=== PATIENT | male | born 1980 | race Caucasian/White ===

== ENCOUNTER 2016-08-07 11:56 | Emergency (ER) | payer OTHER ==
[~2016-08-07] VITALS: Ht 193 cm; Wt 104.3 kg
[~2016-08-07 11:56] MED LIST: ADVIL200 MG PO; ALPRAZOLAM2 M2 PO; ALPRAZOLAM2 MG PO; AMBIEN5 M1 PO; BACTROBAN OINT.30 GM TOP; DEPAKOTE500 M1 PO; KLONOPIN 1MG TAB1 MG PO; KLONOPIN2 MG PO; LITHIUM CARBON300 M3 PO; LITHIUM CARBON300 M4 PO; METHADONE10 MG/5 M2 PO; MOBIC15 MG PO; MOTRIN 400MG (400 MG PO; PANTOPRAZOLE SO40 MG PO; PROTONIX40 M3 PO; TYLENOL XSTR500 MG PO; XANAX2 M1 PO
[2016-08-07 12:06] VITALS: BP 157/114
[2016-08-07] MEDS ORDERED: DEPAKOTE500 M1 PO (12:41)
[2016-08-07] MEDS ORDERED: XANAX1 M1 PO (12:41)
[2016-08-07] MEDS ORDERED: PROTONIX40 M3 PO (12:41)
--- NOTE | 2016-08-07 12:44 | ED GENERAL ADULT ---
History of Present Illness General Chief Complaint: General Adult Stated Complaint: MED REFILL Source: patient, old records Exam Limitations: no limitations Vital Signs & Intake/Output Vital Signs & Intake/Output Vital Signs Date Time Temp Pulse Resp B/P B/P Pulse O2 O2 Flow FiO2 Mean Ox Delivery Rate 08/07 1206 98.3 98 20 157/114 97 Room Air Allergies Coded Allergies: Penicillins (Mild, RASH 04/19/15) codeine (Mild, GI UPSET 04/19/15) Reconcile Medications Alprazolam 2 MG TABLET 1 TAB PO TID ANXIETY (Reported) Alprazolam (Xanax) 1 MG TABLET 1 TAB PO TID anxiety Divalproex Sodium (Depakote) 500 MG TABLET.DR 2 TAB PO BID SEIZURES (Reported ) Divalproex Sodium (Depakote) 500 MG TABLET.DR 2 TAB PO BID BIPOLAR/SEIZURES Divalproex Sodium (Depakote) 500 MG TABLET.DR 1 TAB PO BID mood stabilizer Pantoprazole Sodium (Protonix) 40 MG TABLET.DR 1 TAB PO DAILY ACID REFLUX ( Reported) Pantoprazole Sodium (Protonix) 40 MG TABLET.DR 1 TAB PO DAILY gastritis Zolpidem Tartrate (Ambien) 5 MG TABLET 1 TAB PO QPMP SLEEP HELP (Reported) Triage Note: PT REQUESTING REFILL ON DEPAKOTE, XANAX, PROTONIX. STATES HE WAS IN HALFWAY X 6 MONTHS AND JUST GOT OUT. HIS MD WON'T REFILL HIS RX BECAUSE HE OWES HIM MONEY Triage Nurses Notes Reviewed? yes Onset: Just prior to arrival Duration: hour(s):, constant, continues in ED Timing: recent history Severity: mild No Modifying Factors: none HPI: Patient presents for refill of prescriptions Depakote Xanax Protonix. He denies fever chills nausea vomiting diarrhea abdominal pain chest pain shortness breath headache dysuria rash bleeding. Past History Travel History Traveled to [place] past 21 day No Medical History Any Pertinent Medical History? 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 No Review of Systems Review of Systems Constitutional: Reports: no symptoms. EENTM: Reports: no symptoms. Respiratory: Reports: no symptoms. Cardiovascular: Reports: no symptoms. GI: Reports: no symptoms. Genitourinary: Reports: no symptoms. Musculoskeletal: Reports: no symptoms. Skin: Reports: no symptoms. Neurological/Psychological: Reports: no symptoms. Hematologic/Endocrine: Reports: no symptoms. Immunologic/Allergic: Reports: no symptoms. All Other Systems: Reviewed and Negative Physical Exam Physical Exam General Appearance: well developed/nourished, no apparent distress, alert, awake , comfortable Head: atraumatic, normal appearance Eyes: Bilateral: normal appearance, PERRL, EOMI. Ears, Nose, Throat: normal pharynx, normal ENT inspection Neck: normal inspection, supple, full range of motion, no midline tenderness Respiratory: normal breath sounds, chest non-tender, no respiratory distress, quiet respiration, lungs clear Cardiovascular: regular rate/rhythm, normal peripheral pulses, norml femoral pulses equa Peripheral Pulses: 4+ carotid (R), 4+ carotid (L) Gastrointestinal: normal bowel sounds, soft, non-tender, no organomegaly Back: normal inspection, normal range of motion, no vertebral tenderness Extremities: normal inspection, normal capillary refill, normal range of motion, no edema Neurologic/Psych: no motor/sensory deficits, awake, alert, oriented x 3, normal gait, normal mood/affect Reflexes: 2+: bicep (R), bicep (L). Skin: intact, normal color, warm/dry Lymphatic: no anterior cervical kelly Core Measures ACS in differential dx? No CVA/TIA Diagnosis: No Severe Sepsis Present: No Septic Shock Present: No Progress Differential Diagnoses I considered the following diagnoses in my evaluation of the patient: Medication refill Plan of Care: med refill Initial ED EKG: none Departure Departure Time of Disposition: 1238 Disposition: HOME OR SELF CARE Condition: Stable Clinical Impression Primary Impression: Medication refill Secondary Impressions: Bipolar disorder Qualifiers: Current episode severity: unspecified Referrals: PATIENT HAS NO PRIMARY CARE DR (PCP/Family) Departure Forms: Customer Survey General Discharge Information Prescriptions: Current Visit Scripts Alprazolam (Xanax) 1 TAB PO TID #21 TAB Pantoprazole Sodium (Protonix) 1 TAB PO DAILY #7 TAB Divalproex Sodium (Depakote) 1 TAB PO BID #14 TAB Critical Care Note Critical Care Note Critical Care Time: non-applicable
== END 2016-08-07 12:52 ==
LOC: ERH 11:56
DX: Z76.0 Encounter for issue of repeat prescription (principal); F31.9 Bipolar disorder, unspecified
CPT/HCPCS: 99281

== ENCOUNTER 2017-02-22 08:05 | Inpatient (IN) | payer OTHER ==
[~2017-02-22] VITALS: Ht 195.6 cm; Wt 108.0 kg
[~2017-02-22 08:05] MED LIST changes: +CLONIDINE HCL0.1 MG PO; +DIVALPROEX SOD250 M2 PO; +EFFEXOR XR75 M1 PO; +GABAPENTIN300 M2 PO; +GABAPENTIN400 M2 PO; +IBUPROFEN600 M1 PO; +NAPROXEN500 M2 PO; +NEURONTIN400 M1 PO; +NICORELIEF2 MG PO; +OMEPRAZOLE20 M2 PO; +OMEPRAZOLE20 M3 PO; +ONE DAILY MULT1 EAC2 PO; +PERPHENAZINE8 M1 PO; +XANAX1 M1 PO
--- NOTE | 2017-02-22 08:19 | ED AMS/SEIZURE/WEAK/DIZZY ---
History of Present Illness General Chief Complaint: ETOH/Drug Related Complaint Stated Complaint: BIBA, UNRESPONSICE Source: EMS Exam Limitations: unable to give history, clinical condition Vital Signs & Intake/Output Vital Signs & Intake/Output Vital Signs Date Time Temp Pulse Resp B/P B/P Pulse O2 O2 Flow FiO2 Mean Ox Delivery Rate 02/25 1400 97.4 72 20 138/88 02/25 1200 97.4 72 20 138/88 02/25 1200 97.4 72 20 134/88 96 Room Air 02/25 1000 97.2 63 18 122/82 ED Intake and Output 02/26 0000 02/25 1200 Intake Total 1295 700 Output Total Balance 1295 700 Intake, IV 575 600 Intake, Oral 720 100 Number 1 0 Bowel Movements Allergies Coded Allergies: Penicillins (Mild, RASH 04/19/15) codeine (Mild, GI UPSET 04/19/15) Reconcile Medications Alprazolam 2 MG TABLET 1 TAB PO TID ANXIETY Alprazolam (Xanax) 2 MG TABLET 1 TAB PO TID ANXIETY Buprenorphine HCl/Naloxone HCl (Buprenorphin-Naloxon 8-2 MG Sl) 8 MG-2 MG TAB.SUBL 1 TAB SL BID ANXIETY Buprenorphine HCl/Naloxone HCl (Buprenorphn-Naloxn 2-0.5 MG Sl) 2 MG-0.5 MG TAB.SUBL 2 TAB SL 1200 ANXIETY Divalproex Sodium 250 MG TABLET.DR 3 TAB PO BID mood stabilizer Gabapentin 400 MG CAPSULE 1 CAP PO TID ANXIETY (Reported) Omeprazole 20 MG CAPSULE.DR 20 MG PO DAILY AC GERD Perphenazine 8 MG TABLET 8 MG PO BID voices and seeing things Venlafaxine HCl (Effexor XR) 75 MG CAP.ER.24H 75 MG PO 0800 depression Triage Nurses Notes Reviewed? yes HPI: Patient presents for evaluation of altered mental status. The patient himself is unable to provide history. According to the cell manager the patient was found minimally responsive on the ground after witnesses saw him fall. Slight abrasion to the right side of the forehead. Patient was given 2 mg of Narcan without significant improvement. Past History Medical History Any Pertinent Medical History? 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 No Review of Systems Review of Systems Constitutional: Reports: no symptoms. EENTM: Reports: no symptoms. Respiratory: Reports: no symptoms. Cardiovascular: Reports: no symptoms. GI: Reports: no symptoms. Genitourinary: Reports: no symptoms. Musculoskeletal: Reports: no symptoms. Skin: Reports: no symptoms. Neurological/Psychological: Reports: no symptoms. Hematologic/Endocrine: Reports: no symptoms. Immunologic/Allergic: Reports: no symptoms. All Other Systems: Reviewed and Negative Comments Patient unable to provide review of systems Physical Exam Physical Exam General Appearance: SEE BELOW Comments: Upon my arrival to the room the patient's cervical collar was off and his clothes were being removed. Patient was placed back into the cervical collar immediately. Gen.: Well-nourished, well-developed, no acute respiratory distress. Head: Normocephalic, atraumatic. Eyes: Normal inspection bilaterally Ears: Normal inspection bilaterally Nose: Normal inspection Throat/mouth : Moist mucosa Neck: Supple, full range of motion, no goiter Heart: Regular rate and rhythm, no murmurs rubs or gallops Lungs: Clear to auscultation bilaterally with normal air entry Chest: Nontender Back: Normal range of motion Abdomen: Soft, nontender, nondistended, normal bowel sounds Extremities: Normal range of motion grossly, equal radial pulses, no cyanosis clubbing or edema Neurologic: Cranial nerves grossly intact, speech is clear Skin: warm and dry Psychiatric: Calm, cooperative, no apparent delusions or hallucinations Core Measures ACS in differential dx? No CVA/TIA Diagnosis No Sepsis Present: No Sepsis Focused Exam Completed? No Progress Differential Diagnosis: drug intoxication, hypoglycemia, hypoxia, intracranial Hem., intracranial mass/tumor, seizure disorder Plan of Care: Orders Procedure Date/time Status TROPONIN LEVEL 02/25 718 Complete CREATINE PHOSPHOKINASE 02/25 718 Complete Discharge Patient 02/25 UNK Active Lab Add-on Test 02/25 UNK Active OXYGEN 02/23 UNK Complete OXYGEN DAILY CHARGE 02/23 UNK Complete OXYGEN SETUP CHG 02/22 UNK Complete OXYGEN 02/22 UNK Complete OXYGEN TRANSPORT 02/22 UNK Complete Diagnostic Imaging: Viewed by Me: CT Scan. Discussed w/RAD: CT Scan. Radiology Impression: PATIENT: DANIEL GARICA PRESENT AGE : 36 PATIENT ACCOUNT NO: [id number] : 81 LOCATION: [facility] ORDERING PHYSICIAN: Nolan Charles MD SERVICE DATE: 02/22/17 EXAM TYPE: CAT - CT CERV SPINE WO IV CONTRAST; CT HEAD WO IV CONTRAST EXAMINATION: CT HEAD NONCONTRAST CT CERVICAL SPINE NONCONTRAST CLINICAL INFORMATION: Head trauma. Bleed. COMPARISON: CT head dated 07/26/2009. TECHNIQUE: Noncontrast computed tomography of the head was performed. Noncontrast computed tomography of the cervical spine was performed. FINDINGS: CT head: Examination of the head is somewhat limited secondary to motion artifact. No gross intracranial hemorrhage. No evidence of acute/subacute cerebral or cerebellar infarction. The ventricles are normal in size. No extra-axial fluid collection. No midline shift. No mass effect. Evaluation of the posterior fossa is markedly limited secondary to streak artifact. The visualized orbits are unremarkable. The mastoid air cells are clear. There is mild mucosal thickening within the right maxillary sinus. Cervical spine: Cervical spinal alignment appears anatomic in the sagittal projection. Posterior elements are well aligned. Vertebral body heights are maintained. No evidence of compression fracture. The C1-C2 relationship is anatomic. The dens is intact. No fracture. Prevertebral soft tissue is unremarkable. Lung apices are clear. IMPRESSION: 1. No acute intracranial abnormality is detected. Please note, however, the evaluation is somewhat limited secondary to motion artifact. 2. No acute osseous cervical spine abnormality. DICTATED BY: Rivas Arguelles MD DATE/TIME DICTATED:02/22/17850 PROSTHETIC TECHNICIAN:ALFREDO DATE/TIME TRANSCRIBED:02/22/17850 CONFIDENTIAL, DO NOT COPY WITHOUT APPROPRIATE AUTHORIZATION. <Electronically signed in Other Vendor System> SIGNED BY: Rivas Arguelles MD 02/22/17 0905 CXR Impression: PATIENT: DANIEL GARCIA PRESENT AGE: 36 PATIENT ACCOUNT NO: [id number] : 81 LOCATION: [facility] ORDERING PHYSICIAN: Nolan Charles MD SERVICE DATE: 02/22/17 EXAM TYPE: RAD - XRY-PORTABLE CHEST XRAY EXAMINATION: XR PORTABLE CHEST CLINICAL INFORMATION: Poorly responsive. Aspiration. COMPARISON: Chest radiograph dated 03/30/2013. TECHNIQUE : Portable frontal view of the chest was obtained. FINDINGS: There are low lung volumes. Cardiac silhouette is normal in size for this projection. There are bibasilar opacities. Aspiration is not excluded. No pneumothorax or large pleural effusion. IMPRESSION: Bibasilar opacities. Aspiration not excluded. Low lung volumes. DICTATED BY: Rivas Arguelles MD DATE/TIME DICTATED:02/22/17942 PROSTHETIC TECHNICIAN:ALFREDO DATE/TIME TRANSCRIBED:02/22/17942 CONFIDENTIAL, DO NOT COPY WITHOUT APPROPRIATE AUTHORIZATION. <Electronically signed in Other Vendor System> SIGNED BY: Rivas Arguelles MD 02/22/17946 Initial ED EKG: NSR, rate (76), no ST T wave changes Prior EKG: unchanged Comments: Naloxone ordered but kept at the bedside as the patient's vital signs are stable currently. 02/22/2017 8:58:38 AM I have reevaluated DANIEL. He remains hemodynamically stable. Because of sonorous respirations and nasal trumpet was placed and naloxone administered with resolution of the snoring. 02/22/2017 11:32:58 AM Daniel is now arousable to firm tactile stimulation. Clinically he appears to be improving. I have discussed this case with the hospitalist. At this point the patient is not clinically ready for crisis/ psychiatry evaluation for the possibility of a benzodiazepine overdose. Departure Departure Disposition: STILL A PATIENT Condition: Stable Clinical Impression Primary Impression: Benzodiazepine overdose Qualifiers: Encounter type: initial encounter Injury intent: undetermined intent Qualified Code: T42.4X4A - Poisoning by benzodiazepines, undetermined, initial encounter Secondary Impressions: Cocaine abuse Referrals: Unknown (PCP/Family) Departure Forms: Customer Survey General Discharge Information Prescriptions: Current Visit Scripts Buprenorphine HCl/Naloxone HCl (Buprenorphin-Naloxon 8-2 MG Sl) 1 TAB SL BID #1 TAB Buprenorphine HCl/Naloxone HCl (Buprenorphn-Naloxn 2-0.5 MG Sl) 2 TAB SL 1200 #2 TAB Omeprazole 20 MG PO DAILY AC #14 CAP Alprazolam (Xanax) 1 TAB PO TID #6 TAB Admission Note Documentation of Exam: Documentation of any treatments & extenuating circumstances including Concerns Regarding Discharge (functional status, medication knowledge or non-compliance, living conditions, etc.) that warrant an admission rather than observation: Observation Note Spoke With: Kalie Padilla MD Patient In: Non-ED OBS Care Area Rationale for Observation: My rational for observation is as follows Patient presented minimally responsive after passing out. His evaluation reveals high levels of benzodiazepines and cocaine consistent with a benzodiazepine overdose and cocaine abuse. Although he has improved clinically he is still very lethargic and continues to require oxygen supplementation and a nasal trumptet to maintain normal oxygen saturations. I do not feel this patient can be treated safely as an outpatient given the level of care he requires at this time. I feel he now requires hospitalization for close clinical monitoring of vital signs pulse oximetry and airway. The fact that the patient had an empty bottle of Xanax prescribed recently raises the possibility of an intentional overdose so psychiatry consultation should be considered. Patient's medications should be reviewed and adjusted accordingly. Patient should be counseled on recreational drug use. Critical Care Note Critical Care Note Critical Care Time: 30-74 min Admission Note Documentation of Exam: Documentation of any treatments & extenuating circumstances including Concerns Regarding Discharge (functional status, medication knowledge or non-compliance, living conditions, etc.) that warrant an admission rather than observation: Observation Note Spoke With: Kalie Padilla MD Patient In: Non-ED OBS Care Area Rationale for Observation: My rational for observation is as follows Patient presented minimally responsive after passing out. His evaluation reveals high levels of benzodiazepines and cocaine consistent with a benzodiazepine overdose and cocaine abuse. Although he has improved clinically he is still very lethargic and continues to require oxygen supplementation and a nasal trumptet to maintain normal oxygen saturations. I do not feel this patient can be treated safely as an outpatient given the level of care he requires at this time. I feel he now requires hospitalization for close clinical monitoring of vital signs pulse oximetry and airway. The fact that the patient had an empty bottle of Xanax prescribed recently raises the possibility of an intentional overdose so psychiatry consultation should be considered. Patient's medications should be reviewed and adjusted accordingly. Patient should be counseled on recreational drug use. Critical Care Note Critical Care Note Critical Care Time: 30-74 min
[2017-02-22 08:51] LABS: ABSOLUTE BASOPHIL COUNT 0 /CUMM (0.0-0.2); ABSOLUTE EOSINOPHIL COUNT 0 /CUMM (0.0-0.7); ABSOLUTE GRANULOCYTE CT 7.1 /CUMM (1.4-6.5); ABSOLUTE LYMPH COUNT 1.2 /CUMM (1.2-3.4); ABSOLUTE MONOCYTE COUNT 0.4 /CUMM (0.10-0.60); BASOPHIL % 0.3 % (0.0-2.0); EOSINOPHIL % 0.3 % (0-5); GRANULOCYTE % 81.5 % (42.2-75.2); MEAN CORPUSCULAR HGB 30.4 PG (27.0-31.0); MEAN CORPUSCULAR HGB CONC 33.6 G/DL (33.0-37.0); MEAN CORPUSCULAR VOLUME 90.4 FL (80.0-94.0); MEAN PLATELET VOLUME 8.5 FL (7.4-10.4); PLATELET COUNT 166 /CUMM (130-400); RBC DISTRIBUTION WIDTH 14.9 % (11.5-14.5); RED BLOOD CELL CT 4.39 /CUMM (4.70-6.10); WHITE BLOOD CELL COUNT 8.7 /CUMM (4.8-10.8)
[2017-02-22 08:59] LABS: HEMATOCRIT 39.7 % (42-52)
--- NOTE | 2017-02-22 09:05 | CT SCAN REPORT ---
EXAMINATION: CT HEAD NONCONTRAST CT CERVICAL SPINE NONCONTRAST CLINICAL INFORMATION: Head trauma. Bleed. COMPARISON: CT head dated 07/26/2009. TECHNIQUE: Noncontrast computed tomography of the head was performed. Noncontrast computed tomography of the cervical spine was performed. FINDINGS: CT head: Examination of the head is somewhat limited secondary to motion artifact. No gross intracranial hemorrhage. No evidence of acute/subacute cerebral or cerebellar infarction. The ventricles are normal in size. No extra-axial fluid collection. No midline shift. No mass effect. Evaluation of the posterior fossa is markedly limited secondary to streak artifact. The visualized orbits are unremarkable. The mastoid air cells are clear. There is mild mucosal thickening within the right maxillary sinus. Cervical spine: Cervical spinal alignment appears anatomic in the sagittal projection. Posterior elements are well aligned. Vertebral body heights are maintained. No evidence of compression fracture. The C1-C2 relationship is anatomic. The dens is intact. No fracture. Prevertebral soft tissue is unremarkable. Lung apices are clear. IMPRESSION: 1. No acute intracranial abnormality is detected. Please note, however, the evaluation is somewhat limited secondary to motion artifact. 2. No acute osseous cervical spine abnormality.
--- NOTE | 2017-02-22 09:47 | RADIOLOGY REPORT ---
EXAMINATION: XR PORTABLE CHEST CLINICAL INFORMATION: Poorly responsive. Aspiration. COMPARISON: Chest radiograph dated 03/30/2013. TECHNIQUE: Portable frontal view of the chest was obtained. FINDINGS: There are low lung volumes. Cardiac silhouette is normal in size for this projection. There are bibasilar opacities. Aspiration is not excluded. No pneumothorax or large pleural effusion. IMPRESSION: Bibasilar opacities. Aspiration not excluded. Low lung volumes.
--- NOTE | 2017-02-22 13:23 | History & Physical ---
Xu ROTHMAN,[facility] 02/22/17 1322: General Information and HPI MD Statement: I have seen and personally examined SILVANA GARCIA and documented this H&P. The patient is a 36 year old M who presented with a patient stated chief complaint of [obtunded/semi responsive]. Source of Information: patient, old records, EMS Exam Limitations: unable to give history, not alert/orientated, confusion, intoxication History of Present Illness: Mr. Garcia is 36 year old male with past medical history significant for depression, anxiety, bipolar disease, polysubstance abuse, previous suicidal ideations and attempts, chronic back pain was on methadone, GERD who presented to ED after was found semi-responsive intercurrent or the nearby building. Patient presented to ED on February 20 and February 03 for medication refill. History was an obtainable as patient is obtunded, he respond to verbal stimulus by opening eyes, go back to sleep, unable to give history. Per EMS, patient had witnessed fall with no head trauma, Slight abrasion to the right side of the forehead. Patient was given 2 mg of Narcan without significant improvement. An empty bottle of Xanax 2 mg number of tablets 15 was held on 02/20 was found empty in patient's pocket. Upon presentation patient had stable vital signs with temperature 98.5, pulse 72 regular, blood pressure 122/72 respiratory rate 18 saturating 99% on 4 L nasal cannula oxygen and 98% on 2 L nasal cannula. Allergies/Medications Allergies: Coded Allergies: Penicillins (Mild, RASH 04/19/15) codeine (Mild, GI UPSET 04/19/15) Home Med list Alprazolam (Xanax) 2 MG TABLET 1 TAB PO TID PRN ANXIETY (Reported) Alprazolam 2 MG TABLET 1 TAB PO TIDPRN ANXIETY Alprazolam 2 MG TABLET 1 TAB PO TID ANXIETY Divalproex Sodium 250 MG TABLET.DR 3 TAB PO BID BIPOLAR Divalproex Sodium 250 MG TABLET.DR 3 TAB PO BID PSYCH Divalproex Sodium 250 MG TABLET.DR 3 TAB PO BID mood stabilizer Gabapentin 400 MG CAPSULE 1 CAP PO Q6H PRN ANXIETY (Reported) Gabapentin 400 MG CAPSULE 1 CAP PO TID ANXIETY Gabapentin (Neurontin) 400 MG CAPSULE 1 CAP PO TID ANXIETY Omeprazole 20 MG TABLET.DR 1 TAB PO DAILY GERD Omeprazole 20 MG TABLET.DR 1 TAB PO DAILY GERD Omeprazole 20 MG CAPSULE.DR 40 MG PO DAILY AC GERD Perphenazine 8 MG TABLET 8 MG PO BID voices and seeing things Venlafaxine HCl (Effexor XR) 75 MG CAP.ER.24H 1 CAP PO DAILY PSYCH Venlafaxine HCl (Effexor XR) 75 MG CAP.ER.24H 75 MG PO 0800 depression Past History Travel History Traveled to [place] past 21 day No Medical History Neurological: seizure EENT: NONE Cardiovascular: NONE Respiratory: NONE Gastrointestinal: GERD Hepatic: NONE Renal: NONE Musculoskeletal: chronic back pain Psychiatric: alcohol dependence, bipolar disease, depression, opioid dependence, substance abuse, benzodiazepine dependence Endocrine: NONE Blood Disorders: NONE Cancer(s): NONE COSMETICIAN/Reproductive: NONE History of MRSA: No History of VRE: No History of CDIFF: No Isolation History: Standard Tetanus Vaccine: 07/31/11 Surgical History Surgical History: non-contributory, Left distal forarm I&D Past Family/Social History Family History Relations & Conditions if any FATHER MOTHER FH: hypertension FH: Parkinson's disease Psychosocial History Who Do You Live With? parent Services at Home: None Primary Language: Czech ETOH Use: 5 Illicit Drug Use: U Functional Ability ADLs Independent: dressing, eating, toileting, bathing. Review of Systems Review of Systems Constitutional: Reports: see HPI. Exam & Diagnostic Data Last 24 Hrs of Vital Signs/I&O Vital Signs Date Time Temp Pulse Resp B/P B/P Pulse O2 O2 Flow FiO2 Mean Ox Delivery Rate 02/22 1427 98.4 73 18 126/87 02/22 1350 98.6 77 18 144/74 99 Room Air 02/22 1255 98.0 70 20 127/70 100 Nasal 2.0L Cannula 02/22 1119 98.1 65 20 127/70 98 Nasal 2.0L Cannula 02/22 1037 98.0 74 20 132/66 98 Nasal 2.0L Cannula 02/22 1006 70 20 130/72 98 Nasal 2.0L Cannula 02/22 0939 98 Nasal 2.0L Cannula 02/22 0926 98.3 71 20 136/76 98 Nasal 3.0L Cannula 02/22 0909 71 20 119/73 98 Nasal 3.0L Cannula 02/22 0844 75 20 118/66 93 Nasal 2.0L Cannula 02/22 0827 77 20 122/72 98 Nasal 2.0L Cannula 02/22 0815 98.5 72 18 121/72 99 Nasal 4.0L Cannula Intake & Output 02/22 1600 02/22 0800 02/22 0000 Intake Total Output Total Balance Patient 108.862 kg Weight Weight Estimated Measurement Method Physical Exam General Appearance No Acute Distress, OBTUNDED Skin No Rashes, No Breakdown, No Significant Lesion Skin Temp/Moisture Exam: Warm/Dry HEENT Atraumatic, PERRLA, BILATERAL DILATED PUPILS Neck Supple Cardiovascular Regular Rate, Normal S1, Normal S2, No Murmurs Lungs Clear to Auscultation, Normal Air Movement Abdomen Normal Bowel Sounds, Soft, No Tenderness Neurological UNOBTAINABLE Extremities No Clubbing, No Cyanosis, No Edema, Normal Pulses Assessment/Plan Assessment: Mr. Garcia is 36 year old male with past medical history significant for depression, anxiety, bipolar disease, polysubstance abuse, previous suicidal ideations and attempts, chronic back pain was on methadone, GERD who was admitted for benzo overdose. Labs were significant for bicarbonate 31, anion gap 14, pain so more than 800 and elevated cocaine, no alcohol. UA negative. With a normal liver function test, kidney function normal BUN/creatinine 16/0.8, sodium 144, potassium 4.3, white blood cell 8.7, H&H 13.3/39.7, platelet 166 CT head and cervical spine negative for acute changes. Chest x-ray IMPRESSION: Bibasilar opacities. Aspiration not excluded. Low lung volumes. EKG: NSR, rate (76), no ST T wave changes Problem list #Benzodiazepine overdose intentional versus unintentional overdose #Cocaine intoxication #Extended psych history with bipolar, anxiety and depression Plan -Admit to general medical floor since patient is hemodynamically stable with no significant abnormal blood work -Avoid beta nic in light of cocaine intoxication -Vitals every shift -CIWA score on Ativan per CIWA score -Start gentle IV fluid normal saline 75 mL/h -We'll avoid fLUMAZENIL since patient is on chronic benzodiazepine and that may precipitate seizure -We'll obtain psych consultation, spoke with Justin who recommend holding all of his psych medication until patient is awake and history is obtainable -networker consultation -We'll obtain ABG for elevated bicarbonate to rule out carbon dioxide retention -CT MANAGER FINANCIAL REPORTING was obtained in patient's chart -DVT prophylaxis Lovenox -Code full -Diet nothing by mouth for drowsiness and confusion As Ranked By This Provider Problem List: 1. Cocaine abuse 2. Benzodiazepine overdose Qualifiers Encounter type: initial encounter Injury intent: undetermined intent Qualified Code: T42.4X4A - Poisoning by benzodiazepines, undetermined, initial encounter Core Measures/Misc (10/28) Acute Coronary Syndrome ACS Diagnosis: No Congestive Heart Failure Congestive Heart Failure Diagnosis No Cerebrovascular Accident CVA/TIA Diagnosis: No VTE (View Protocol) VTE Risk Factors Acute Medical Illness No Mechanical VTE Prophylaxis d/t N/A MechProphylax Ordered No VTE Pharm Prophylaxis d/t NA PharmProphylax ordered Sepsis (View protocol) Sepsis Present: No Liberty Fajardo MD 02/22/17 1406: Attending MD Review Statement Attending Statement Attending MD Statement: examined this patient, discuss w/resident/PA/CAFETERIA ASSISTANT, agreed w/resident/PA/CAFETERIA ASSISTANT, reviewed EMR data (avail), discussed with nursing, reviewed images Attending Assessment/Plan: 36-year-old male with a past medical history of polysubstance abuse including alcohol, heroin, benzo dependence underlying psychiatric disorder questionable depression and anxiety, chronic back pain and GERD. He was brought in today after being seen stumbling around and then being unresponsive with EMS noting a bottle of Xanax- 15 tabs which were filled on February 20 and the bottle was empty. He didn't respond to Narcan both on the field and in the emergency room. His U tox came back positive for cocaine and benzos and the presumption is substance induced lethargy and unresponsiveness. When I saw him, he awakens with verbal stimuli and goes right back to sleep. He says he doesn't want to be bothered. There is no focality on his exam, his vital signs are stable and he saturating 98% on room air. He has a Arndt draining urine and the limited exam reveals dilated pupils and no obvious track kenny or any concerning findings. His labs are notable for a bicarbonate of 31. At this point he is coming in as observation. Will watch his vital signs closely. We have asked psych to see him as I'm concerned whether this is an intentional or unintentional overdose given his previous psychiatric history. We'll place a sitter. Will put him on Ativan per CIWA protocol should he wake up and get agitated. He obviously cannot leave unless he is evaluated by psychiatry. Will hold off on all his psychiatric meds now given his lethargy. Given the bicarbonate of 31 we'll get an ABG to make sure that he is not hypercapnic. We'll give him some fluids, DVT prophylaxis and follow closely.
[2017-02-22 14:27] VITALS: BP 126/87
[2017-02-22 16:00] VITALS: BP 126/87
--- NOTE | 2017-02-22 16:38 | Cons- Psychiatry ---
Psychiatric Consult Date of Consult: 02/22/17 Reason for Consult: "Suicide attempt with Xanax" History of Present Illness: 36 M BIBA from the lobby of an aprtment building after being observed stumbling. Per the triage note, he was curled up in a ball on the floor after a fall with a head abrasion, when EMS arrived, semi-responsive. Narcan 2 mg IV to no effect. Empty bottle of Xanax 2 mg tabs filled 02/20/17 for #15 tabs found with him. [facility] He had presented on 02/20/17 requesting to have his medications refilled, including: Depakote 750 mg 2X/day, #84 tabs Alprazolam 2 mg 3X/day, #15 tabs Omeprazole 20 mg daily, #30 tabs Effexor ER 75 mg 2X/day, #30 caps Gabapentin 100 mg 3X/day, #90 caps He had reported that he has an appointment with a new provider next week. Note that he did not refill his perphenazine, his Effexor dose was increased, his gabapentin dose was decreased He was discharged from inpatient psychiatry on 01/01/17, where he had been treated since 12/24/16 for alcohol, Xanax and heroin detox and suicidal thoughts. He completed a methadone taper for opiate withdrawal. He had a plan to stay with his grandmother, and an intake appointment for [facility] on . He did not appear for this appointment. He did not want a prescription for trazodone. Discharge meds: Depakote DR 750 mg PO 2X/day for mood stability Perphenazine 8 mg PO 2X/day for voices and seeing things Nicorelief gum 2 mg PO q 2 hours, PRN for cravings Ibuprofen 600 mg PO q 6 hours PRN for mild pain Gabapentin 300 mg PO q 6 hours, PRN for anxiety (Off-label) Effexor XR 75 mg PO daily for depression Omeprazole 40 mg PO Daily for breakfast for GERD MVI daily Utox is positive for benzodiazepines and cocaine. Valproic acid level is 21.8, below the therapeutic threshold. Serum alcohol < 10. PMH: polysubstance abuse - alcohol, heroin, benzo dependence. Imaging: CT Head non-contrast 02/22/2017: From the radiology report: 1. No acute intracranial abnormality is detected. Please note, however, the evaluation is somewhat limited secondary to motion artifact. 2. No acute osseous cervical spine abnormality. EKG 02/22/17 @ 0850 shows SR 76 bpm, QTc 428 mS Per the med claim history: Clindamycin 300 mg #30 for 10 days on 02/19/17 by Reta Andrews [phone] Suboxone 8/2 mg #14 for 7 days on 02/19/17 by Remigio Lobo [phone] Suboxone 4/1 mg #7 for 7 days on 02/19/17 by Remigio Lobo [phone] 250 mg #42 on 02/03/17 by Kalie Apergcamilla Alprazolam 2 mg #15 on 02/03/17 by Kalie Apergcamilla Omeprazole DR 20 mg #7 for 7 days on 02/03/17 by Kalie Seguraergcamilla Perphenazine 8 mg #28 on 01/01/17 by Osiel Martinez Nicorelief gum 2 mg #100 on 01/01/17 by Osiel Martinez Ibuprofen 600 mg #42 on 01/01/17 by Osiel Martinez Gabapentin 300 mg #42 for 10 days on 01/01/17 by Osiel Martinez Effexor XR 75 mg #14 on 01/01/17 by Osiel Martinez Allergies: Coded Allergies: Penicillins (Mild, RASH 04/19/15) codeine (Mild, GI UPSET 04/19/15) Current Medications: Current Medications Sig/Harry Start time Last Medication Dose Route Stop Time Status Admin Enoxaparin Sodium 40 MG DAILY 02/22 1329 AC 02/22 SC 1344 Lorazepam 0 Q1P PRN 02/22 1400 AC IV Naloxone HCl 2 MG ONCE ONE 02/22 0900 DC 02/22 IV 02/22 0901 0904 Naloxone HCl 0 .STK-MED ONE 02/22 0814 DC .ROUTE Sodium Chloride 1,000 ML .[id number] 02/22 1330 AC 02/22 IV 1344 Past History Past Medical History Neurological: seizure EENT: NONE Cardiovascular: NONE Respiratory: NONE Gastrointestinal: GERD Hepatic: NONE Renal: NONE Musculoskeletal: chronic back pain Psychiatric: alcohol dependence, bipolar disease, depression, opioid dependence, psychosis, substance abuse, benzodiazepine dependence Endocrine: NONE Blood Disorders: NONE Cancer(s): NONE PREPARING BOX TENDER/Reproductive: NONE Past Surgical History Surgical History: non-contributory, Left distal forarm I&D Psychosocial History Strengths/Capabilities: Unable to assess at this time Physical Limitations (Interventions): None identified. Psychiatric Treatment History Psych Treatment Psychiatric Treatment Yes Inpatient Treatment Yes Outpatient Treatment Yes Location of Treatment [facility] inpatient December 2016 Reason for Treatment Drug and alcohol detox and suicidal ideation Dates of Treatment December,. See the HPI, above Response to Treatment Improved Diagnosis: Bipolar D/O Anxiolytic Use D/O Opioid Use D/O Cocaine D/O Unspecified Depressive D/O Risk Factors: access to lethal means, high anxiety/distress, history of suicide atmpts, SA/MH hospitalized, substance abuse, isolate/no social support, poor impulse control, lives alone, male, limited support Substance Use/Abuse History Drug Use/Abuse Substances Used/Abused Yes Substance Used/Abused Benzodiazepines First Use Unable to evaluate Last Used MANAGER [employer] INSURANCE How much used/taken #15 X 2 mg in less than 2 days, plus other substances, including cocaine How often Unable to determine For how long Unknown Substance Abuse Treatment Substance Abuse Treatment Past Substance Abuse [place] Yes Inpatient Treatment Yes Outpatient Treatment Yes (Unknown) Location of Treatment [place] Reason for Treatment Polysubstance abuse and dependence Dates of Treatment Various, but 2011 and 2013 at [facility] Response to Treatment Unknown. Did not appear for the last intake on 01/02/17 Assessment/Plan Mental Status Orientation: Sedated. Mental Status Exam: Unable to evaluate inhis current state. Lab Results: Laboratory Tests 02/22 02/22 1355 0828 Blood Gas pH (7.35 - 7.45 PH) 7.33 L pCO2 (35 - 45 TORR) 54 H pO2 (80 - 100 TORR) 89 HCO3 (21 - 28 MEQ/L) 28 ABG O2 Sat (Measured) (>96.0 %) 96.0 Carboxyhemoglobin (1.5 - 5.0 %) 4.2 O2 Concentration % 2L O2 Delivery Method NC Chemistry Sodium (137 - 145 mmol/L) 144 Potassium (3.5 - 5.1 mmol/L) 4.3 Chloride (98 - 107 mmol/L) 100 Carbon Dioxide (22 - 30 mmol/L) 31 H Anion Gap (5 - 16) 14 BUN (9 - 20 mg/dL) 16 Creatinine (0.7 - 1.2 mg/dL) 0.8 Estimated GFR (>60 ml/min) > 60 BUN/Creatinine Ratio (7 - 25 %) 20.0 Glucose (65 - 99 mg/dL) 118 H Calcium (8.4 - 10.2 mg/dL) 9.5 Total Bilirubin (0.2 - 1.3 mg/dL) 0.4 AST (17 - 59 U/L) 24 ALT (21 - 72 U/L) 41 Alkaline Phosphatase (< 127 U/L) 51 Troponin I (<0.11 ng/ml) < 0.01 Total Protein (6.3 - 8.2 g/dL) 7.0 Albumin (3.5 - 5.0 g/dL) 4.2 Globulin (1.9 - 4.2 gm/dL) 2.8 Albumin/Globulin Ratio (1.1 - 2.2 %) 1.5 TSH (0.270 - 4.200 uIU/mL) 0.362 Thyroxine (T4) (4.5 - 10.9 ug/dL) 7.5 Thyroxine Binding Indx (23.5 - 40.5 % UPTAKE) 34.0 Hematology CBC w Diff NO MAN DIFF REQ WBC (4.8 - 10.8 /CUMM) 8.7 RBC (4.70 - 6.10 /CUMM) 4.39 L Hgb (14.0 - 18.0 G/DL) 13.3 L Hct (42 - 52 %) 39.7 L MCV (80.0 - 94.0 FL) 90.4 MCH (27.0 - 31.0 PG) 30.4 RDW (11.5 - 14.5 %) 14.9 H Plt Count (130 - 400 /CUMM) 166 MPV (7.4 - 10.4 FL) 8.5 Gran % (42.2 - 75.2 %) 81.5 H Lymphocytes % (20.5 - 51.1 %) 13.4 L Monocytes % (1.7 - 9.3 %) 4.5 Eosinophils % (0 - 5 %) 0.3 Basophils % (0.0 - 2.0 %) 0.3 Absolute Granulocytes (1.4 - 6.5 /CUMM) 7.1 H Absolute Lymphocytes (1.2 - 3.4 /CUMM) 1.2 Absolute Monocytes (0.10 - 0.60 /CUMM) 0.4 Absolute Eosinophils (0.0 - 0.7 /CUMM) 0 Absolute Basophils (0.0 - 0.2 /CUMM) 0 PUBS MCHC (33.0 - 37.0 G/DL) 33.6 Miscellaneous Phlebotomy Draw Site RIGHT RADIAL Toxicology Salicylates (0 - 20.0 mg/dL) < 1.0 Acetaminophen (10.0 - 30.0 ug/mL) < 10.0 L Valproic Acid (50 - 120 ug/mL) 21.8 L Serum Alcohol (<10 MG/DL) < 10.0 02/22 02/22 0825 0819 Toxicology Urine Opiates Screen (>2000 NG/ML) < 100.00 Methadone Screen (>300 NG/ML) < 40 Barbiturate Screen (>200 NG/ML) 99 Valproic Acid Cancelled Ur Phencyclidine Scrn (>25 NG/ML) < 6.00 Amphetamines Screen (>1000 NG/ML) 297 U Benzodiazepines Scrn (>200 NG/ML) > 800 H Urine Cocaine Screen (>300 NG/ML) > 1000 H Urine Cannabis Screen (>50 NG/ML) < 5.00 Urines Urine Color (YEL,AMB,STR) YEL Urine Clarity (CLEAR) CLEAR Urine pH (5.0 - 8.0) 6.0 Ur Specific [place] (1.001 - 1.035) >= 1.030 Urine Protein (NEG,<30 MG/DL) NEG Urine Ketones (NEG) NEG Urine Nitrite (NEG) NEG Urine Bilirubin (NEG) NEG Urine Urobilinogen (0.1 - 1.0 EU/dl) 0.2 Ur Leukocyte Esterase (NEG) NEG Ur Microscopic EXAM NOT REQUIRED Urine Hemoglobin (NEG) NEG Urine Glucose (N MG/DL) NEG Diffential Diagnosis: Suicide attempt by polypharmacy Accidental overdose on alprazolam and cocaine Bipolar disorder Psychosis Depression Impression: We were unable to assess the patient, as he is sedated. We are unable to tell at this time if the patient had an intentional overdose as a suicide attempt, or if he had an accidentl overdose. Due to this uncertainty, the patient cannot leave AMA, or otherwise, until he is evaluated by psychiatry. He is not on a Physicians Emergency Certificate, as discussed with Dr. Fajardo, attending, but is being held, per physician order, due to the patient being a danger to himself, pending a psychiatic evaluation. Provisional Treatment Plan: 1. Please maintain a 1:1 sitter until the patient is evaluated by psychiatry. 2. He is not to leave AMA, or otherwise, until seen by psychiatry and declared cleared to leave. We suspect that the patient may need admission to an acute inpatient psychiatry facility. 3. Hold psychotropic medications until the patient clears. Consult electronic coils supervisor psychiatry for recommendation on med re-start. 4. As the patient clears, please start alprazolam 2 mg PO 3X/day to prevent withdrawal symptoms, including seizure. As needed benzodiazepines, per [facility] protocol are not sufficient, but may be continued, along with the scheduled medication. Check with electronic coils supervisor psychiatry over the weekend for their recommendation on whether a taper is indicated. 5. When the patient clears, please continue the Suboxone as currently ordered by his provider, but we recommend checking with the electronic coils supervisor psychiatrist first. If opiate withdrawal symptoms, consider the opiate detox protocol for symptomatic relief, which is attached in an addendum. Consult electronic coils supervisor psychiatry through the Crisis office at [phone], or [facility] at [phone]. [phone]. We will revisit the patient on 02/25/17, for a more thorough evaluation of the patient's suspected suicide attempt. Addendum Addendum CT ASSEMBLER DC FIELD RING Aware report [address] [facility], [facility] [address] [place] [address] [email or web address] Report Prepared: 02/22/2017 Patient Report Date Range: 02/23/2016 02/22/2017 silvana garcia Linked Records Name ID Gender Address SILVANA GARCIA 1980 1 male [address] [place] [id number] Report Criteria First Name: silvana, Last Name: soumya, : 1980, ZIP Code: , City: , State: [place], Phone: , SSN: , DL: Summary Prescriptions:7 Prescribers:4 Pharmacies:1 Private Pay:0 Active Daily MME:0.0 Prescriptions Filled ID Written Drug QTY Days Prescriber Rx # Pharmacy* Refills MME/D Pymt Type ASSEMBLER DC FIELD RING 02/12/2017 1 02/06/2017 SUBOXONE 4 MG-1 MG SL FILM 7.0 7 DA SOHAN [id number] [facility] ( [id number]) [address] 02/12/2017 1 02/06/2017 SUBOXONE 8 MG-2 MG SL FILM 14.0 7 DA SOHAN [id number] [facility] ( [id number]) [address] 02/06/2017 1 02/06/2017 SUBOXONE 4 MG-1 MG SL FILM 7.0 7 DA SOHAN [id number] [facility] ( [id number]) [address] 02/06/2017 1 02/06/2017 SUBOXONE 8 MG-2 MG SL FILM 14.0 7 DA SOHAN [id number] [facility] ( 2633) [address] 02/03/2017 1 02/03/2017 ALPRAZOLAM 2 MG TABLET 15.0 5 KOREAN APE [id number] [facility] ([id number] ) [address] 12/20/2016 1 12/20/2016 ALPRAZOLAM 2 MG TABLET 24.0 8 DA HEN [id number] [facility] ([id number] ) [address] Addendum Note Addendum MANAGING OPIATE DETOX AND WITHDRAWAL Version: 1.0 TOPIC: Managing opiate detox and withdrawal for medical and surgical inpatients; patient not currently on methadone or partial opiate agonist (buprenorphine- Naltrexone/Suboxone). Formulation: The patient presents with recent history of opiate use, such as heroin, street-obtained pharmaceuticals, and/or prescription drug abuse. There may be competing withdrawals from alcohol, benzodiazepines, amphetamines, or other substances. If the patient is currently on methadone therapy, verify current dosing with the clinic, determine if there is a taper schedule in place and continue with the out-patient plan. Monitor EKG for arrhythmia. Plan: Our goal is to minimize withdrawal signs and symptoms using the OOWS/SOWS screening tool, appropriate medication therapy and clinical judgment: 1. Objective Opioid Withdrawal Scale and the Subjective Opioid Withdrawal Scale (OOWS/SOWS), as currently employed on [facility]. These scales are each on one side of a single sheet of paper (Appendix A). 2. Opiate detox protocol: a. EKG - please monitor for arrhythmias and prolonged QTC. b. Clonidine 0.1 mg PO every 4 hours as needed, if opiate withdrawal symptoms. Hold Clonidine for blood pressure less than 90 mmHg systolic, less than 60 mmHg diastolic or pulse less than 55 BPM. c. Baclofen 10 mg PO every 6 hours, as needed, for muscle cramps. d. Dicyclomine (Bentyl) 20 mg PO every 6 hours, as needed, for GI cramps. e. Hydroxyzine (Atarax or Vistaril) 50 mg PO every 6 hours, as needed, for anxiety. f. Ibuprofen 600 mg PO every 6 hours, as needed, for pain. g. Multivitamin daily. 3. Taper benzodiazepines before discharge, or patient will be unable to start an Intensive Outpatient Psychiatry program (IOP).
[2017-02-22 22:34] VITALS: BP 136/75
[2017-02-23 06:42] VITALS: BP 122/75
[2017-02-23 09:02] LABS: ABSOLUTE BASOPHIL COUNT 0 /CUMM (0.0-0.2); ABSOLUTE EOSINOPHIL COUNT 0.1 /CUMM (0.0-0.7); ABSOLUTE GRANULOCYTE CT 5.7 /CUMM (1.4-6.5); ABSOLUTE LYMPH COUNT 1.4 /CUMM (1.2-3.4); ABSOLUTE MONOCYTE COUNT 0.8 /CUMM (0.10-0.60); BASOPHIL % 0.5 % (0.0-2.0); EOSINOPHIL % 1.2 % (0-5); GRANULOCYTE % 70.4 % (42.2-75.2); HEMATOCRIT 39.3 % (42-52); MEAN CORPUSCULAR HGB 30.5 PG (27.0-31.0); MEAN CORPUSCULAR HGB CONC 33.3 G/DL (33.0-37.0); MEAN CORPUSCULAR VOLUME 91.6 FL (80.0-94.0); MEAN PLATELET VOLUME 8.9 FL (7.4-10.4); PLATELET COUNT 176 /CUMM (130-400); RBC DISTRIBUTION WIDTH 14.8 % (11.5-14.5); RED BLOOD CELL CT 4.29 /CUMM (4.70-6.10); WHITE BLOOD CELL COUNT 8.1 /CUMM (4.8-10.8)
--- NOTE | 2017-02-23 10:36 | Cons- Psychiatry ---
Psychiatric Consult Date of Consult: 02/22/17 Reason for Consult: overdose of xanax History of Present Illness: 36 M BIBA from the lobby of an aprtment building after being observed stumbling. Per the triage note, he was curled up in a ball on the floor after a fall with a head abrasion, when EMS arrived, semi-responsive. Narcan 2 mg IV to no effect. Empty bottle of Xanax 2 mg tabs filled 02/20/17 for #15 tabs found with him. He is currently in observation on Liberty holguin MD attending. He had presented on 02/20/17 requesting to have his medications refilled, including: Depakote 750 mg 2X/day, #84 tabs Alprazolam 2 mg 3X/day, #15 tabs Omeprazole 20 mg daily, #30 tabs Effexor ER 75 mg 2X/day, #30 caps Gabapentin 100 mg 3X/day, #90 caps He had reported that he has an appointment with a new provider next week. Note that he did not refill his perphenazine, his Effexor dose was increased, his gabapentin dose was decreased He was discharged from inpatient psychiatry on 01/01/17, where he had been treated since 12/24/16 for alcohol, Xanax and heroin detox and suicidal thoughts. He completed a methadone taper for opiate withdrawal. He had a plan to stay with his grandmother, and an intake appointment for [facility] on . He did not appear for this appointment. He did not want a prescription for trazodone. Discharge meds: Depakote DR 750 mg PO 2X/day for mood stability Perphenazine 8 mg PO 2X/day for voices and seeing things Nicorelief gum 2 mg PO q 2 hours, PRN for cravings Ibuprofen 600 mg PO q 6 hours PRN for mild pain Gabapentin 300 mg PO q 6 hours, PRN for anxiety (Off-label) Effexor XR 75 mg PO daily for depression Omeprazole 40 mg PO Daily for breakfast for GERD MVI daily Utox is positive for benzodiazepines and cocaine. Valproic acid level is 21.8, below the therapeutic threshold. Serum alcohol < 10. PMH: polysubstance abuse - alcohol, heroin, benzo dependence. Imaging: CT Head non-contrast 02/22/2017: From the radiology report: 1. No acute intracranial abnormality is detected. Please note, however, the evaluation is somewhat limited secondary to motion artifact. 2. No acute osseous cervical spine abnormality. EKG 02/22/17 @ 0850 shows SR 76 bpm, QTc 428 mS Per the med claim history: Clindamycin 300 mg #30 for 10 days on 02/19/17 by Reta Andrews [phone] Suboxone 8/2 mg #14 for 7 days on 02/19/17 by Remigio Lobo [phone] Suboxone 4/1 mg #7 for 7 days on 02/19/17 by Remigio Lobo [phone] 250 mg #42 on 02/03/17 by Kalie Apergcamilla Alprazolam 2 mg #15 on 02/03/17 by Kalie Seguraergcamilla Omeprazole DR 20 mg #7 for 7 days on 02/03/17 by Kalie Padilla Perphenazine 8 mg #28 on 01/01/17 by Osiel Martinez Nicorelief gum 2 mg #100 on 01/01/17 by Osiel Martinez Ibuprofen 600 mg #42 on 01/01/17 by Osiel Martinez Gabapentin 300 mg #42 for 10 days on 01/01/17 by Osiel Martinez Effexor XR 75 mg #14 on 01/01/17 by Osiel Martinez On exam today, pt easily arousable and initally offered minimal answers. He reported, "I didn't try to hurt myself" quite adamantly. He reports that he does not remember the exact event leading up to hospitalization, but remembers that he met up with a friend on night. They started smoking crack and were doing that for a few hours when his friend was going to give him a ride home. After that he remembers nothing. He notes that he has been taking all meds as prescribed, "I've been doing real good, staying sober and clean." He notes that he has been taking xanax as directed 2mg TID, along with suboxone 8mg, 4mg, and 8mg, gabapentin, venlafaxine , depakote, and omeprazole. He believes that the pills that were found around him were the gabapentin. He does not know where meds are now. He reports that he has been living with his grandmother, working for a [employer], and staying sober. He reports last use was one year ago (records indicate differently). He adamantly denied SI or HI throughout interview. Asked for contact information from grandmotherAnny, : emergency collateral obtained in the setting of psychiatric evaluation. LIZY notes that he has been doing really well up until night. She denied that he seemed depressed, anxious, manic or psychotic. Denies that he expressed any thoughts of harm to self or others to her. SHe has no concerns about his safety. As she is 81yo, she would like him not to return for some time. He is going to go live with father in the meantime. He notes that he gets [facility] and has an upcoming appointment with psychiatrist on Saturday there as well. Denies manic episodes, though hx, dx at 10yo, psychotic or truama-related sx. CTPMP check 02/20 xanax 2mg #15, 5d 02/03 xanax 2mg #15, 5d 12/20 xanax 2mg #15, 5d 08/08 xanax 2mg #15, 5d 02/19 suboxone 4mg/1mg #7, 7d 02/19 suboxone 8mg/2mg #14, 7d CTPMP check in line with pt report Allergies: Coded Allergies: Penicillins (Mild, RASH 04/19/15) codeine (Mild, GI UPSET 04/19/15) Current Medications: Current Medications Sig/Harry Start time Last Medication Dose Route Stop Time Status Admin Enoxaparin Sodium 40 MG DAILY 02/22 1329 AC 02/22 SC 1344 Lorazepam 0 Q1P PRN 02/22 1400 AC 02/23 IV 0554 Sodium Chloride 1,000 ML .[id number] 02/22 1330 AC 02/23 IV 0048 Past History Past Medical History Neurological: seizure EENT: NONE Cardiovascular: NONE Respiratory: NONE Gastrointestinal: GERD Hepatic: NONE Renal: NONE Musculoskeletal: chronic back pain Psychiatric: alcohol dependence, bipolar disease, depression, opioid dependence, psychosis, substance abuse, benzodiazepine dependence Endocrine: NONE Blood Disorders: NONE Cancer(s): NONE GAMBLING CASHIER/Reproductive: NONE Past Surgical History Surgical History: non-contributory, Left distal forarm I&D Psychosocial History Strengths/Capabilities: Unable to assess at this time Physical Limitations (Interventions): None identified. Psychiatric Treatment History Psych Treatment Psychiatric Treatment Yes Inpatient Treatment Yes Outpatient Treatment Yes Location of Treatment [facility] inpatient December 2016 Reason for Treatment Drug and alcohol detox and suicidal ideation Dates of Treatment December,. See the HPI, above Response to Treatment Improved Diagnosis: Bipolar D/O Anxiolytic Use D/O Opioid Use D/O Cocaine D/O Unspecified Depressive D/O Risk Factors: access to lethal means, high anxiety/distress, history of suicide atmpts, SA/MH hospitalized, substance abuse, isolate/no social support, poor impulse control, lives alone, male, limited support Substance Use/Abuse History Drug Use/Abuse Substances Used/Abused Yes Substance Used/Abused Benzodiazepines First Use Unable to evaluate Last Used SITE CONTROLLER How much used/taken #15 X 2 mg in less than 2 days, plus other substances, including cocaine How often Unable to determine For how long Unknown Substance Abuse Treatment Substance Abuse Treatment Past Substance Abuse TX Yes Inpatient Treatment Yes Outpatient Treatment Yes (Unknown) Location of Treatment [facility] Reason for Treatment Polysubstance abuse and dependence Dates of Treatment Various, but 2011 and 2013 at [facility] Response to Treatment Unknown. Did not appear for the last intake on 01/02/17 Assessment/Plan Mental Status Orientation: Person, Place, Situation Affect: Anxious (Irritable) Speech: Loud, Mumbled Neuro-vegetative: Concentration Poor, Hyperactivity, Sleep Disturbance Mental Status Exam: General appearance: fair hygiene and grooming in hospital gown; Attitude: minimally cooperative, defensive; Eye contact: appropriate; Movement: + psychomotor agitation; Speech: nl fluency, nl rate/rhythm, luod volume, nl prosody; Mood: "I need my suboxone" Affect: extremely irritable, appropriate, constricted, non-labile, congruent; Thought process: linear and goal-directed; Thought content: denied SI or HI, no paranoid ideation; Perception: denied hallucinations- auditory, visual, does not appear to be responding to internal stimuli; I/J: limited Lab Results: Laboratory Tests 02/23 02/22 0720 1355 Blood Gas pH (7.35 - 7.45 PH) 7.33 L pCO2 (35 - 45 TORR) 54 H pO2 (80 - 100 TORR) 89 HCO3 (21 - 28 MEQ/L) 28 ABG O2 Sat (Measured) (>96.0 %) 96.0 Carboxyhemoglobin (1.5 - 5.0 %) 4.2 O2 Concentration % 2L O2 Delivery Method NC Chemistry Sodium (137 - 145 mmol/L) 141 Potassium (3.5 - 5.1 mmol/L) 4.0 Chloride (98 - 107 mmol/L) 101 Carbon Dioxide (22 - 30 mmol/L) 28 Anion Gap (5 - 16) 12 BUN (9 - 20 mg/dL) 16 Creatinine (0.7 - 1.2 mg/dL) 0.8 Estimated GFR (>60 ml/min) > 60 BUN/Creatinine Ratio (7 - 25 %) 20.0 Hematology CBC w Diff NO MAN DIFF REQ WBC (4.8 - 10.8 /CUMM) 8.1 RBC (4.70 - 6.10 /CUMM) 4.29 L Hgb (14.0 - 18.0 G/DL) 13.1 L Hct (42 - 52 %) 39.3 L MCV (80.0 - 94.0 FL) 91.6 MCH (27.0 - 31.0 PG) 30.5 RDW (11.5 - 14.5 %) 14.8 H Plt Count (130 - 400 /CUMM) 176 MPV (7.4 - 10.4 FL) 8.9 Gran % (42.2 - 75.2 %) 70.4 Lymphocytes % (20.5 - 51.1 %) 17.6 L Monocytes % (1.7 - 9.3 %) 10.3 H Eosinophils % (0 - 5 %) 1.2 Basophils % (0.0 - 2.0 %) 0.5 Absolute Granulocytes (1.4 - 6.5 /CUMM) 5.7 Absolute Lymphocytes (1.2 - 3.4 /CUMM) 1.4 Absolute Monocytes (0.10 - 0.60 /CUMM) 0.8 H Absolute Eosinophils (0.0 - 0.7 /CUMM) 0.1 Absolute Basophils (0.0 - 0.2 /CUMM) 0 PUBS MCHC (33.0 - 37.0 G/DL) 33.3 Miscellaneous Phlebotomy Draw Site RIGHT RADIAL Diffential Diagnosis: Bipolar disorder Substance induced mood disorder Opiate use disorder on maintenence Sedative/hypnotic use disorder Tobacco use disorder Impression: Pt with hx of Bipolar disorder, though no known episodes of elyse or hypomania, so more likely unspecified mood disorder vs substance induced mood disorder, who was brought in likely secondary to accidently overdose. Pt is quite adamant that doing well and did not have thoughts of harm to self or others in the time leading up to hospitalization. As pt is awake and alert, would benefit from resuming psychiatric medications, most importantly, suboxone for opiate use disorder. At this time, he does not appear to be danger to self or others nor is he gravely disabled. Provisional Treatment Plan: 1. Please d/c 1:1 as per patient and collateral not danger to self or others nor gravely disabled. 2. Now mental status improved, would restart psychiatric medications. Per CTPMP was rx xanax 2mg TID. 3. Per CTPMP records, taking suboxone as 8mg BID and 4mg daily, would resume as pt now starting to have opiate wd sx. 4. Pt reports f/u appointment with [facility] in [place] on Saturday. Primary team should ascertain exact date/time of that appointment. If not this week, should make one for this week. Thank you for the consult. Please contact if patient decides would like rehab information or placement.
[2017-02-23 12:57] VITALS: BP 102/70
--- NOTE | 2017-02-23 16:01 | PN- Att Addend ---
Attending Addendum Attending Brief Note 36M PMH polysubstance abuse including alcohol, heroin, benzo dependence underlying psychiatric disorder questionable depression and anxiety, chronic back pain and GERD admitted for unresponsiveness and lethargy in the setting of benzo overdose, per patient denies intentional overdose and has no suicidal ideation or interest in self-harm. More awake today, doing well, alert and cooperative. No signs of withdrawal or intoxication. Vitals stable, labs normal. AFVSS NAD NCAT Supple RRR CTAB Soft, NTND No c/c/e Pulses intact A&Ox3 no focal deficits Current Medications Sig/Harry Start time Last Medication Dose Route Stop Time Status Admin Buprenorphine/ 2 TAB 0800 02/23 1545 AC Naloxone SL Buprenorphine/ 1 TAB BID 02/23 1534 AC Naloxone SL Enoxaparin Sodium 40 MG DAILY 02/22 1329 AC 02/22 SC 1344 Lorazepam 0 Q1P PRN 02/22 1400 AC 02/23 IV 1103 Sodium Chloride 1,000 ML .[id number] 02/22 1330 AC 02/23 IV 0048 Laboratory Tests 02/23 0720 Chemistry Sodium (137 - 145 mmol/L) 141 Potassium (3.5 - 5.1 mmol/L) 4.0 Chloride (98 - 107 mmol/L) 101 Carbon Dioxide (22 - 30 mmol/L) 28 Anion Gap (5 - 16) 12 BUN (9 - 20 mg/dL) 16 Creatinine (0.7 - 1.2 mg/dL) 0.8 Estimated GFR (>60 ml/min) > 60 BUN/Creatinine Ratio (7 - 25 %) 20.0 Hematology CBC w Diff NO MAN DIFF REQ WBC (4.8 - 10.8 /CUMM) 8.1 RBC (4.70 - 6.10 /CUMM) 4.29 L Hgb (14.0 - 18.0 G/DL) 13.1 L Hct (42 - 52 %) 39.3 L MCV (80.0 - 94.0 FL) 91.6 MCH (27.0 - 31.0 PG) 30.5 RDW (11.5 - 14.5 %) 14.8 H Plt Count (130 - 400 /CUMM) 176 MPV (7.4 - 10.4 FL) 8.9 Gran % (42.2 - 75.2 %) 70.4 Lymphocytes % (20.5 - 51.1 %) 17.6 L Monocytes % (1.7 - 9.3 %) 10.3 H Eosinophils % (0 - 5 %) 1.2 Basophils % (0.0 - 2.0 %) 0.5 Absolute Granulocytes (1.4 - 6.5 /CUMM) 5.7 Absolute Lymphocytes (1.2 - 3.4 /CUMM) 1.4 Absolute Monocytes (0.10 - 0.60 /CUMM) 0.8 H Absolute Eosinophils (0.0 - 0.7 /CUMM) 0.1 Absolute Basophils (0.0 - 0.2 /CUMM) 0 PUBS MCHC (33.0 - 37.0 G/DL) 33.3 Vital Signs Date Time Temp Pulse Resp B/P B/P Pulse O2 O2 Flow FiO2 Mean Ox Delivery Rate 02/23 1257 98.1 80 18 102/70 92 Nasal 1.0L Cannula 02/23 0800 Nasal 1.0L Cannula 02/23 0642 98.0 77 18 122/75 91 Nasal 1.0L Cannula 02/23 0000 93 Nasal 1.0L Cannula 02/22 2234 98.6 86 18 136/75 94 Nasal 1.0L Cannula Intake & Output 02/23 1600 02/23 0800 02/23 0000 Intake Total 800 600 225 Output Total 250 300 300 Balance 550 300 -75 Intake, IV 800 600 225 Intake, Oral 0 Number 0 Bowel Movements Output, Urine 250 300 300 1. Benzodiazepine overdose, unintentional 2. Unresponsiveness 3. Polysubstance abuse Plan - Continue on general medicine - Continue psych medications - Follow psychiatry recommendations - DVT PPx - Anticipated discharge tomorrow or Saturday, speak with psychiatry regarding discharge planning
[2017-02-23 17:00] VITALS: BP 104/66
[2017-02-24 03:52] VITALS: BP 104/66
[2017-02-24 05:09] VITALS: BP 104/66
[2017-02-24 06:00] VITALS: BP 104/66
[2017-02-24 06:10] VITALS: BP 104/66
--- NOTE | 2017-02-24 12:04 | Patient Discharge Instructions ---
Discharge Instructions General Discharge Information You were seen/treated for: 1. Benzodiazepine overdose, unintentional 2. Unresponsiveness 3. Polysubstance abuse You had these procedures: none Special Instructions: Please follow up with PCP in 1 week Please follow up with your psychiatrist in [place] on Saturday02/27/17 You have been given 6 tablets of Xanax to make it to your appointment on Saturday, please take Xanax as instructed Diet Continue normal diet: Yes Activity Full Activity/No Limits: Yes Acute Coronary Syndrome Inclusion Criteria At DC or during hospital stay patient has or had the following: ACS DIAGNOSIS No Discharge Core Measures Meds if any: Prescribed or Continued at Discharge Meds if any: NOT Prescribed or Continued at Discharge Congestive Heart Failure Inclusion Criteria At DC or during hospital stay patient has or had the following: CHF DIAGNOSIS No Discharge Core Measures Meds if any: Prescribed or Continued at Discharge Meds if any: NOT Prescribed or Continued at Discharge Cerebrovascular accident Inclusion Criteria At DC or during hospital stay patient has or had the following: CVA/TIA Diagnosis No Discharge Core Measures Meds if any: Prescribed or Continued at Discharge Meds if any: NOT Prescribed or Continued at Discharge Venous thromboembolism Inclusion Criteria VTE Diagnosis No VTE Type NONE VTE Confirmed by (Test) NONE Discharge Core Measures - Per Current guidelines, there needs to be overlap - treatment for the first 5 days of Warfarin therapy. - If discharged on Warfarin prior to 5 days of - overlap therapy, the patient will need to be - assessed for post discharge needs including - *Post discharge parental anticoagulation - *Warfarin and/or parental anticoagulation education - *Follow up date to check INR post discharge At least 5 days overlap therapy as Inpatient No Meds if any: Prescribed or Continued at Discharge Note: Overlap Therapy is Warfarin and Anticoagulant Meds if any: NOT Prescribed or Continued at Discharge
--- NOTE | 2017-02-24 12:20 | PN- Housestaff ---
Vicente ROTHMAN,Bette 02/24/17 1220: Subjective Follow-up For: Benzodiazepine overdose Subjective: AAO x 3, able to ambulate with help around the floors. Complains of night terrors during the day and severe anxiety Review of Systems Constitutional: Reports: no symptoms. Objective Last 24 Hrs of Vital Signs/I&O Vital Signs Date Time Temp Pulse Resp B/P B/P Pulse O2 O2 Flow FiO2 Mean Ox Delivery Rate 02/24 1511 97.6 76 20 118/76 98 02/24 1226 95 Room Air 02/24 0610 97.9 70 20 104/66 95 02/24 0600 97.9 70 20 104/66 02/24 0509 97.9 70 20 104 95 Room Air Room Air 02/24 0352 97.9 70 20 10466 Intake & Output 02/24 1600 02/24 0800 02/24 0000 Intake Total 9917 051 4756 Output Total 1000 Balance 1500 850 425 Intake, IV 800 600 525 Intake, Oral 700 250 900 Number 1 Bowel Movements Output, Urine 1000 Patient 238 lb Weight Weight Reported by Patient Measurement Method Physical Exam General Appearance: Alert, Oriented X3, Cooperative, No Acute Distress Skin: No Significant Lesion Cardiovascular: Regular Rate, Normal S1, Normal S2 Lungs: Clear to Auscultation Current Medications: Current Medications Sig/Harry Start time Last Medication Dose Route Stop Time Status Admin Alprazolam 2 MG TID 02/23 2199 AC 02/24 PO 03/028 Buprenorphine/ 2 TAB 1200 02/24 1200 AC 02/24 Naloxone SL 1241 Buprenorphine/ 1 TAB BID 02/23 1534 AC 02/24 Naloxone SL 2046 Divalproex Sodium 750 MG BID 02/23 2199 AC 02/24 PO 204 Enoxaparin Sodium 40 MG DAILY 02/22 1329 AC 02/22 SC 1344 Gabapentin 100 MG Q8 02/23 2200 AC 02/24 PO 204 Ibuprofen 600 MG ONCE ONE 02/24 1915 DC 02/24 PO 02/24 1915 192 Lorazepam 0 Q1P PRN 02/22 1400 AC 02/24 IV 2006 Nicotine 14 MG DAILY 02/24 1000 AC 02/24 TOP 0906 Nicotine 14 MG DAILY 02/23 2330 DC TOP Perphenazine 8 MG BID 02/23 2199 AC 02/24 PO 204 Sodium Chloride 1,000 ML .[id number] 02/22 1330 AC 02/24 IV 1749 Venlafaxine HCl 75 MG BID 02/23 2200 AC 02/24 PO 2048 Last 24 Hrs of Lab/Yohan Results Last 24 Hrs of Labs/Mics: none Assessment/Plan Assessment: Mr. Rodgers is 36 year old male with past medical history significant for depression, anxiety, bipolar disease, polysubstance abuse, previous suicidal ideations and attempts, chronic back pain was on methadone, GERD who presented to ED after was found semi-responsive. Per EMS, patient had a witnessed fall with no head trauma, Slight abrasion to the right side of the forehead. Patient was given 2 mg of Narcan without significant improvement. An empty bottle of Xanax 2 mg number of tablets 15 was held on 02/20 was found empty in patient's pocket. Problem list #Benzodiazepine overdose, unintentional overdose #AMS #Polysubstance abuse #Extended psych history with bipolar, anxiety and depression Plan - Continue on general medicine-pt continues to score high on CIWA - Continue ativan - Continue psych medications - Continue one-to-one sitter - Follow psychiatry recommendations - DVT PPx Problem List: 1. Benzodiazepine overdose 2. Polysubstance abuse 3. Bipolar disorder Pain Ratin Pain Location: n/a Pain Goal: Remain pain free Pain Plan: continuecurrent plan Tomorrow's Labs & Rationales: cbc, bep Be Padilla MD 02/24/17 1606: Attending MD Review Statement Attending Statement Attending MD Statement: examined this patient, discuss w/resident/PA/CHAIR CAR DRIVER, agreed w/resident/PA/CHAIR CAR DRIVER, reviewed EMR data (avail) Attending Assessment/Plan: 36M PMH polysubstance abuse including alcohol, heroin, benzo dependence underlying psychiatric disorder questionable depression and anxiety, chronic back pain and GERD admitted for unresponsiveness and lethargy in the setting of benzo overdose, per patient denies intentional overdose and has no suicidal ideation or interest in self-harm. Patient is agitated and anxious today. He has required 5mg IV Ativan over the past 24 hours. He otherwise has no complaints and is hemodynamically stable. AFVSS NAD, anxious NCAT Supple RRR CTAB Soft, NTND No c/c/e Pulses intact A&Ox3 no focal deficits 1. Benzodiazepine overdose, unintentional 2. Unresponsiveness 3. Polysubstance abuse Plan - Continue on general medicine, convert to full admission - Continue Ativan per CIWA - Continue psych medications - Follow psychiatry recommendations - DVT PPx
[2017-02-24 15:11] VITALS: BP 118/76
[2017-02-24 21:43] VITALS: BP 146/80
[2017-02-25] VITALS (9 sets, daily range): BP systolic 102–138; BP diastolic 54–88
[2017-02-25 08:45] LABS: ABSOLUTE BASOPHIL COUNT 0 /CUMM (0.0-0.2); ABSOLUTE EOSINOPHIL COUNT 0.2 /CUMM (0.0-0.7); ABSOLUTE GRANULOCYTE CT 2.6 /CUMM (1.4-6.5); ABSOLUTE LYMPH COUNT 2.4 /CUMM (1.2-3.4); ABSOLUTE MONOCYTE COUNT 0.5 /CUMM (0.10-0.60); BASOPHIL % 0.6 % (0.0-2.0); EOSINOPHIL % 3.2 % (0-5); GRANULOCYTE % 45.7 % (42.2-75.2); HEMATOCRIT 38.3 % (42-52); MEAN CORPUSCULAR HGB 30.3 PG (27.0-31.0); MEAN CORPUSCULAR HGB CONC 33.1 G/DL (33.0-37.0); MEAN CORPUSCULAR VOLUME 91.3 FL (80.0-94.0); MEAN PLATELET VOLUME 9.3 FL (7.4-10.4); PLATELET COUNT 171 /CUMM (130-400); WHITE BLOOD CELL COUNT 5.7 /CUMM (4.8-10.8)
--- NOTE | 2017-02-25 10:01 | PN- Psychiatry ---
See Addendum Assessment/Plan Impression: The patient states that he takes his medication as ordered, and the recently filled empty alprazolam vial was the result of his technician support association stealing the pills. He intends to avoid this person in the future. Insight and judgement are intact, but we would like a clearer explanation of the events leading to his hospitalization. The patient is reporting vivid nightmares, which can be addressed as an outpatient. Suggestion: 1. Continue at home psychiatric medications, and change current orders, as needed: Depakote 750 mg PO 2X/day Alprazolam 2 mg PO 3X/day Effexor ER 75 mg PO daily Gabapentin 400 mg PO 3X/day Perphenazine 8 mg PO 2X/day 2. Refer the patient to his Suboxone provider for continuation of his current order 3. Discontinue lorazepam before discharge, tapering, if necessary. 4. Consider VNA, if possible, for a short period for medication teaching and administration. He is moving to his father's unoccupied trailer in [place]. 5. The patient needs a 7-Day medication box. 6. Discharge note to his new psychaitric provider, whom he identifies as Joel Hernandez APRN at [facility] in [place]. He has an appointment with her this coming Saturday, per his report (Unconfirmed, as the patient will not allow me to contact her, and wishes to give her the discharge instructions himself.) He is not suicidal, not psychotic, not delirious and is cleared psychiatrically for discharge. Subjective Subjective: The patient was seen today, 02/25/17, at 0940. He is alert, sitting calmly on his bed. He is oriented to person, place ("Hospital"), day, month and year. He denies AH or VH, and presents no cecile delusions. He denies SI or HI and feels safe here. He denies that his altered mental status when found was due to intentional overdose/suicide attempt. Objective Last 24 Hrs of Vital Signs/I&O Vital Signs Date Time Temp Pulse Resp B/P B/P Pulse O2 O2 Flow FiO2 Mean Ox Delivery Rate 02/25 0845 97.7 63 18 122/82 96 02/25 0409 97.4 68 20 102/54 96 02/25 0400 97.4 68 20 102/54 02/25 0002 97.6 66 20 118/70 96 02/25 0000 97.6 66 20 118/70 02/24 2143 97.9 78 18 146/80 97 Room Air 02/24 1511 97.6 76 20 118/76 98 02/24 1226 95 Room Air Intake & Output 02/25 1600 02/25 0800 02/25 0000 Intake Total 700 1525 Output Total Balance 700 1525 Intake, IV 600 525 Intake, Oral 100 1000 Number 0 Bowel Movements Physical Exam General Appearance: no apparent distress, alert, awake Neurologic/Psychiatric: awake, alert, oriented x 3, normal gait Current Medications: Current Medications Sig/Harry Start time Last Medication Dose Route Stop Time Status Admin Alprazolam 2 MG TID 02/23 PO 03/02 215 2048 Buprenorphine/ 2 TAB 1200 02/24 1200 AC 02/24 Naloxone SL 1241 Buprenorphine/ 1 TAB BID 02/23 1534 AC 02/24 Naloxone SL 2046 Divalproex Sodium 750 MG BID 02/23 PO 2047 Enoxaparin Sodium 40 MG DAILY 02/22 1329 AC 02/22 SC 1344 Gabapentin 100 MG Q8 02/230 AC 02/25 PO 0546 Ibuprofen 600 MG ONCE ONE 02/24 1915 DC 02/24 PO 02/24 191 1927 Lorazepam 0 Q1P PRN 02/22 1400 AC 02/25 IV 0555 Nicotine 14 MG DAILY 02/24 1000 AC 02/24 TOP 0906 Omeprazole 20 MG DAILY AC 02/25 0600 AC 02/25 PO 0600 Perphenazine 8 MG BID 02/23 220 AC 02/24 PO 2047 Sodium Chloride 1,000 ML .[id number] 02/22 1330 AC 02/24 IV 1749 Venlafaxine HCl 75 MG BID 02/23 2200 AC 02/24 PO 2048 Note the corrections to the above meds above, specifically gabapentin and venlafaxine/Effexor ER. Results Last 24 Hrs of Labs/Mics: Laboratory Tests 02/25 0719 Chemistry Sodium (137 - 145 mmol/L) 140 Potassium (3.5 - 5.1 mmol/L) 4.4 Chloride (98 - 107 mmol/L) 104 Carbon Dioxide (22 - 30 mmol/L) 25 Anion Gap (5 - 16) 12 BUN (9 - 20 mg/dL) 14 Creatinine (0.7 - 1.2 mg/dL) 0.6 L Estimated GFR (>60 ml/min) > 60 BUN/Creatinine Ratio (7 - 25 %) 23.3 Creatine Kinase (55 - 170 U/L) Pending Hematology CBC w Diff NO MAN DIFF REQ WBC (4.8 - 10.8 /CUMM) 5.7 RBC (4.70 - 6.10 /CUMM) 4.20 L Hgb (14.0 - 18.0 G/DL) 12.7 L Hct (42 - 52 %) 38.3 L MCV (80.0 - 94.0 FL) 91.3 MCH (27.0 - 31.0 PG) 30.3 RDW (11.5 - 14.5 %) 14.0 Plt Count (130 - 400 /CUMM) 171 MPV (7.4 - 10.4 FL) 9.3 Gran % (42.2 - 75.2 %) 45.7 Lymphocytes % (20.5 - 51.1 %) 42.1 Monocytes % (1.7 - 9.3 %) 8.4 Eosinophils % (0 - 5 %) 3.2 Basophils % (0.0 - 2.0 %) 0.6 Absolute Granulocytes (1.4 - 6.5 /CUMM) 2.6 Absolute Lymphocytes (1.2 - 3.4 /CUMM) 2.4 Absolute Monocytes (0.10 - 0.60 /CUMM) 0.5 Absolute Eosinophils (0.0 - 0.7 /CUMM) 0.2 Absolute Basophils (0.0 - 0.2 /CUMM) 0 PUBS MCHC (33.0 - 37.0 G/DL) 33.1
--- NOTE | 2017-02-25 10:26 | PN- Housestaff ---
See Addendum Subjective Follow-up For: Benzodiazepine overdose Subjective: Patient was seen and examined this morning, alert oriented 3, reported chest pain and he said it's because of the anxiety and has been having it since admission. Patient required to dose of IV Ativan for CIWA score 8 overnight. Maximum CIWA score he got was 8 overnight. He is eating drinking well. Has sitter. Review of Systems Constitutional: Reports: see HPI. Objective Last 24 Hrs of Vital Signs/I&O Vital Signs Date Time Temp Pulse Resp B/P B/P Pulse O2 O2 Flow FiO2 Mean Ox Delivery Rate 02/25 0845 97.7 63 18 122/82 96 02/25 0409 97.4 68 20 102/54 96 02/25 0400 97.4 68 20 102/54 02/25 0002 97.6 66 20 118/70 96 02/25 0000 97.6 66 20 118/70 02/24 2143 97.9 78 18 146/80 97 Room Air 02/24 1511 97.6 76 20 118/76 98 02/24 1226 95 Room Air Intake & Output 02/25 1600 02/25 0800 02/25 0000 Intake Total 700 1525 Output Total Balance 700 1525 Intake, IV 600 525 Intake, Oral 100 1000 Number 0 Bowel Movements Physical Exam General Appearance: Alert, Oriented X3, Cooperative, No Acute Distress Skin: No Rashes Skin Temp/Moisture Exam: Warm/Dry HEENT: Atraumatic, PERRLA, EOMI, Mucous Membr. moist/pink Neck: Supple Cardiovascular: Regular Rate, Normal S1, Normal S2, No Murmurs Lungs: Clear to Auscultation, Normal Air Movement Abdomen: Normal Bowel Sounds, Soft, No Tenderness Neurological: Normal Speech, Strength at 5/5 X4 Ext, Normal Tone, Sensation Intact, Cranial Nerves 3-12 NL, Reflexes 2+ Assessment/Plan Assessment: Mr. Rodgers is 36 year old male with past medical history significant for depression, anxiety, bipolar disease, polysubstance abuse, previous suicidal ideations and attempts, chronic back pain was on methadone, GERD who presented to ED after was found semi-responsive. Per EMS, patient had a witnessed fall with no head trauma, Slight abrasion to the right side of the forehead. Patient was given 2 mg of Narcan without significant improvement. An empty bottle of Xanax 2 mg number of tablets 15 was held on 1/10 was found empty in patient's pocket. Problem list #Benzodiazepine overdose, unintentional overdose #AMS #Polysubstance abuse #Extended psych history with bipolar, anxiety and depression Plan - Psych evaluation was obtained, thanks recommendation -Patient was started on his home psych medication Depakote 750 mg PO 2X/day Alprazolam 2 mg PO 3X/day Effexor ER 75 mg PO daily Gabapentin 400 mg PO 3X/day Perphenazine 8 mg PO 2X/day - Continue ativan PRN -Patient is stable to be discharged today from psychiatric and medical sides, will follow with his psychiatric appointment on Saturday02/27/17 - DVT PPx Problem List: 1. Benzodiazepine overdose Pain Ratin Pain Location: N/A Pain Goal: Pain 4 or less Pain Plan: See medication Tomorrow's Labs & Rationales: N/A
[2017-02-25] MEDS ORDERED: OMEPRAZOLE20 M2 PO (10:43)
[2017-02-25] MEDS ORDERED: BUPRENORPHN-NA1 EACH SL (10:43)
[2017-02-25] MEDS ORDERED: BUPRENORPHIN-N1 EACH SL (10:43)
[2017-02-25] MEDS ORDERED: XANAX2 M1 PO (10:44)
--- NOTE | 2017-02-26 11:46 | Discharge Summary ---
Visit Information Visit Dates Admission Date: 02/24/17 Discharge Date: 02/25/17 Hospital Course Course Attending Physician: Vandana Duncan MD Primary Care Physician: Unknown Hospital Course: Mr. Rodgers is 36 year old male with past medical history significant for depression, anxiety, bipolar disease, polysubstance abuse, previous suicidal ideations and attempts, chronic back pain was on methadone, GERD who presented to ED after was found stumbling in a lobby of an apartment building. Per the triage note, he was curled up in a ball on the floor after a fall with a head abrasion, also they found An empty bottle of Xanax 2 mg number of tablets 15 was filled on 02/20/17. Upon presentation patient had stable vital signs with temperature 98.5, pulse 72 regular, blood pressure 122/72 respiratory rate 18 saturating 99% on 4 L nasal cannula oxygen and 98% on 2 L nasal cannula. Patient was very confused and drowsy, unable to give history whether he had an intentional overdose as a suicidal attempt or was accidental overdose. Patient was maintained one-to-one sitter, psych medications were held and he was admitted to general medical floor. Once he is mental status improved, denied any suicidal ideation or suicidal attempts. Patient was evaluated by a psychiatrist in the hospital, as per patient and collateral hx, he is not danger to self or others nor gravely disabled. CTPMP was checked and patient was restarted on his home medication. Depakote 750 mg 2X/day Alprazolam 2 mg 3X/day Omeprazole 20 mg daily Effexor ER 75 mg 2X/day Gabapentin 100 mg 3X/day Pt reports f/u appointment with [facility] in [place] on Saturday02/27/17, in the afternoon. Patient was given 6 tabs of xanax until his appointment. Visiting nurse was arranged for medication report. Imaging CT Head non-contrast 02/22/2017: From the radiology report: 1. No acute intracranial abnormality is detected. Please note, however, the evaluation is somewhat limited secondary to motion artifact. 2. No acute osseous cervical spine abnormality. EKG 02/22/17 @ 0850 shows SR 76 bpm, QTc 428 mS Allergies: Coded Allergies: Penicillins (Mild, RASH 04/19/15) codeine (Mild, GI UPSET 04/19/15) Disposition Summary Disposition Principal Diagnosis: Benzo overdose Additional Diagnosis: n/a Discharge Disposition: home health services Discharge Instructions General Discharge Information Code Status: Full Code Patient's Diet: regular Patient's Activity: as tolerated Follow-Up Instructions/Appts: Please follow up with PCP in 1 week Please follow up with your psychiatrist in [place] on Saturday02/27/17 You have been given 6 tablets of Xanax to make it to your appointment on Saturday, please take Xanax as instructed Medications at Discharge Discharge Medications: Continue taking these medications: Divalproex Sodium (Divalproex Sodium) 250 MG TABLET.DR 3 Tablet ORAL TWICE DAILY Qty = 84 Comments: Last Taken:02/28/17 Time:10:35 AM Venlafaxine HCl (Effexor XR) 75 MG CAP.ER.24H 75 Milligram ORAL DAILY @8 AM Qty = 14 Comments: Last Taken:01/01/17 Time:0809 Perphenazine (Perphenazine) 8 MG TABLET 8 Milligram ORAL TWICE DAILY Qty = 28 Comments: Last Taken:02/25/17 Time:10:37 PM Gabapentin (Gabapentin) 400 MG CAPSULE 1 Capsule ORAL THREE TIMES DAILY Comments: Last Taken:02/25/17 Time:13.36 AM Alprazolam (Alprazolam) 2 MG TABLET 1 Tablet ORAL THREE TIMES DAILY Qty = 15 Comments: Last Taken:02/25/17 Time: 10:32 AM Start taking the following new medications: Buprenorphine HCl/Naloxone HCl (Buprenorphin-Naloxon 8-2 MG Sl) 8 MG-2 MG TAB.SUBL 1 Tablet SUBLINGUAL TWICE DAILY Qty = 1 No Refills Buprenorphine HCl/Naloxone HCl (Buprenorphn-Naloxn 2-0.5 MG Sl) 2 MG-0.5 MG TAB.SUBL 2 Tablet SUBLINGUAL 1200 Qty = 2 No Refills Alprazolam (Xanax) 2 MG TABLET 1 Tablet ORAL THREE TIMES DAILY Qty = 6 No Refills The following medications have been changed: Old: Omeprazole (Omeprazole) 20 MG CAPSULE.DR 40 Milligram ORAL DAILY BEFORE BREAKFAST Qty = 14 New: Omeprazole (Omeprazole) 20 MG CAPSULE.DR 20 Milligram ORAL DAILY BEFORE BREAKFAST Qty = 14 Comments: Last Taken:01/01/17 Time:0809 Copies To: Ping ROTHMAN,Adele Dejesus; Justin Storey APRN Attending MD Review Statement Other Findings: Patient was d/w psychiatry (Shaquille Storey) and patient was cleared from Psych stand point for discharge home.
== END 2017-02-25 16:20 | disposition home health service (06) | DRG 812 ==
LOC: ERH 08:05 → ERHI 11:42 → ENRESERV 13:38 → ENTRNSPT 14:03 → EDTRNSPTSTS 14:19 → EDTRNSPT 14:19 → 2NB 14:25 → CMPTRNSPT 14:49 → 2NB 02-24 13:37 → ENPENDDIS 02-25 11:56 → 2NB 02-25 16:20
PROVIDERS: Emergency Medicine; Student in an Organized Health Care Education/Training Program
DX: T42.4X1A Poisoning by benzodiazepines, accidental (unintentional), initial encounter (principal); F14.129 Cocaine abuse with intoxication, unspecified; F31.9 Bipolar disorder, unspecified; F11.10 Opioid abuse, uncomplicated; F41.9 Anxiety disorder, unspecified; G89.29 Other chronic pain; M54.9 Dorsalgia, unspecified; K21.9 Gastro-esophageal reflux disease without esophagitis; F13.20 Sedative, hypnotic or anxiolytic dependence, uncomplicated; F10.10 Alcohol abuse, uncomplicated; F17.210 Nicotine dependence, cigarettes, uncomplicated; F19.14 Other psychoactive substance abuse with psychoactive substance-induced mood disorder
CPT/HCPCS: 2NBSP; 36415; 71045; 80307; 81003; 82436; 87086; 93005; 93010; G0480; J1650; J2310

== ENCOUNTER 2017-02-27 16:09 | Emergency (ER) | payer OTHER ==
[~2017-02-27] VITALS: Ht 193 cm; Wt 108.0 kg
[~2017-02-27 16:09] MED LIST changes: +BUPRENORPHIN-N1 EACH SL; +BUPRENORPHN-NA1 EACH SL
[2017-02-27 16:21] VITALS: BP 136/84
--- NOTE | 2017-02-27 20:39 | ED GENERAL ADULT ---
History of Present Illness General Chief Complaint: General Adult Stated Complaint: RECENTLY DICHARGED AND WAS TOLD TO COME BACK IN Vital Signs & Intake/Output Vital Signs & Intake/Output Vital Signs Date Time Temp Pulse Resp B/P B/P Pulse O2 O2 Flow FiO2 Mean Ox Delivery Rate 02/27 1621 98.6 76 18 136/84 98 Room Air Allergies Coded Allergies: Penicillins (Mild, RASH 04/19/15) codeine (Mild, GI UPSET 04/19/15) Reconcile Medications Alprazolam 2 MG TABLET 1 TAB PO TID ANXIETY Alprazolam (Xanax) 2 MG TABLET 1 TAB PO TID ANXIETY Buprenorphine HCl/Naloxone HCl (Buprenorphin-Naloxon 8-2 MG Sl) 8 MG-2 MG TAB.SUBL 1 TAB SL BID ANXIETY Buprenorphine HCl/Naloxone HCl (Buprenorphn-Naloxn 2-0.5 MG Sl) 2 MG-0.5 MG TAB.SUBL 2 TAB SL 1200 ANXIETY Divalproex Sodium 250 MG TABLET.DR 3 TAB PO BID mood stabilizer Gabapentin 400 MG CAPSULE 1 CAP PO TID ANXIETY (Reported) Omeprazole 20 MG CAPSULE.DR 20 MG PO DAILY AC GERD Perphenazine 8 MG TABLET 8 MG PO BID voices and seeing things Venlafaxine HCl (Effexor XR) 75 MG CAP.ER.24H 75 MG PO 0800 depression Triage Note: 36 YO MALE TO TRIAGE, STATES HE WAS SUPPOSED TO HAVE AN APPT TODAY WITH HIS PSYCHIATRIST BUT WAS UNABLE TO MAKE IT D/T THE SNOW. STATES HE NEEDS A REFILL ON HIS MEDS TO HOLD HIM OVER UNTIL SATURDAY. 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
--- NOTE | 2017-02-27 21:02 | ED GENERAL ADULT ---
History of Present Illness General Chief Complaint: General Adult Stated Complaint: RECENTLY DICHARGED AND WAS TOLD TO COME BACK IN Source: patient Exam Limitations: no limitations Vital Signs & Intake/Output Vital Signs & Intake/Output Vital Signs Date Time Temp Pulse Resp B/P B/P Pulse O2 O2 Flow FiO2 Mean Ox Delivery Rate 02/27 1621 98.6 76 18 136/84 98 Room Air Allergies Coded Allergies: Penicillins (Mild, RASH 04/19/15) codeine (Mild, GI UPSET 04/19/15) Reconcile Medications Alprazolam 2 MG TABLET 1 TAB PO TID ANXIETY Alprazolam (Xanax) 2 MG TABLET 1 TAB PO TID ANXIETY Buprenorphine HCl/Naloxone HCl (Buprenorphin-Naloxon 8-2 MG Sl) 8 MG-2 MG TAB.SUBL 1 TAB SL BID ANXIETY Buprenorphine HCl/Naloxone HCl (Buprenorphn-Naloxn 2-0.5 MG Sl) 2 MG-0.5 MG TAB.SUBL 2 TAB SL 1200 ANXIETY Divalproex Sodium 250 MG TABLET.DR 3 TAB PO BID mood stabilizer Gabapentin 400 MG CAPSULE 1 CAP PO TID ANXIETY (Reported) Omeprazole 20 MG CAPSULE.DR 20 MG PO DAILY AC GERD Perphenazine 8 MG TABLET 8 MG PO BID voices and seeing things Venlafaxine HCl (Effexor XR) 75 MG CAP.ER.24H 75 MG PO 0800 depression Triage Note: 36 YO MALE TO TRIAGE, STATES HE WAS SUPPOSED TO HAVE AN APPT TODAY WITH HIS PSYCHIATRIST BUT WAS UNABLE TO MAKE IT D/T THE SNOW. STATES HE NEEDS A REFILL ON HIS MEDS TO HOLD HIM OVER UNTIL SATURDAY. Triage Nurses Notes Reviewed? yes Onset: Abrupt Duration: day(s): (1), constant, continues in ED, getting worse Timing: single episode today Injury Environment: home Severity: moderate, severe No Modifying Factors: none HPI: 36-year-old male has medical history of anxiety, substance abuse chronic back pain and alcohol dependence presents for medication refill. Patient states that he ran out of his Xanax. Patient was recently hospitalized here after presenting with altered mental status that was thought to be related to a benzodiazepine overdose. Patient is supposed to have an appointment with a psychiatrist today but it was canceled due to the snow and it was rescheduled for Saturday. Patient states that he does not have any of his medication and he is worried about withdrawal. He does have gabapentin at home which he has not been taking. He denies any suicidal or homicidal ideation. He denies any history of withdrawal seizures. Patient states he took his last dose yesterday. denies any current drug or alcohol abuse. (Nikolai Lewis) Past History Travel History Traveled to [place] past 21 day No Medical History Any Pertinent Medical History? 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 No (Nikolai Lewis) Review of Systems Review of Systems Constitutional: Reports: no symptoms. EENTM: Reports: no symptoms. Respiratory: Reports: no symptoms. Cardiovascular: Reports: no symptoms. GI: Reports: no symptoms. Genitourinary: Reports: no symptoms. Musculoskeletal: Reports: no symptoms. Skin: Reports: no symptoms. Neurological/Psychological: Reports: see HPI, anxiety. Hematologic/Endocrine: Reports: no symptoms. Immunologic/Allergic: Reports: no symptoms. All Other Systems: Reviewed and Negative (Nikolai Lewis) Physical Exam Physical Exam General Appearance: well developed/nourished, no apparent distress, alert, awake , anxious Head: atraumatic, normal appearance Eyes: Bilateral: normal appearance, PERRL, EOMI. Ears, Nose, Throat: hearing grossly normal Neck: normal inspection, supple, full range of motion Respiratory: normal breath sounds, chest non-tender, no respiratory distress, lungs clear Cardiovascular: regular rate/rhythm Gastrointestinal: soft, non-tender Extremities: normal inspection, normal range of motion, no edema Neurologic/Psych: no motor/sensory deficits, awake, alert, normal gait Skin: intact, normal color, warm/dry Core Measures ACS in differential dx? No CVA/TIA Diagnosis: No Sepsis Present: No Sepsis Focused Exam Completed? No (Nikolai Lewis) Progress Differential Diagnoses I considered the following diagnoses in my evaluation of the patient: [Drug withdrawal, drug intoxication, drug abuse, panic attack] Plan of Care: Patient seen and evaluated. He is requesting a refill of Xanax. Patient was seen here with a benzodiazepine overdose within the last week. Advised him we cannot refill his benzodiazepines. Offered patient gabapentin which he has at home. Advised him to take 300 mg 3 times a day and follow-up with his psychiatrist on Saturday. Discussed return precautions in detail patient is nontoxic-appearing and agrees the plan. Patient walked out before his discharge instructions could be given. Initial ED EKG: none (Nikolai Lewis) Departure Departure Disposition: HOME OR SELF CARE Condition: Stable Clinical Impression Primary Impression: Encounter for medication refill Referrals: Unknown (PCP/Family) Additional Instructions: Follow-up with her psychiatrist as directed. Take gabapentin 300 mg every 8 hours as needed for anxiety or withdrawal symptoms. Monitor symptoms return with any concerns. Departure Forms: Customer Survey General Discharge Information (Nikolai Lewis) PA/MUSIC THEORY TEACHER Co-Sign Statement Statement: ED Attending supervision documentation- [] I saw and evaluated the patient. I have also reviewed all the pertinent lab results and diagnostic results. I agree with the findings and the plan of care as documented in the PA's/MUSIC THEORY TEACHER's documentation. [X] I have reviewed the ED Record and agree with the PA's/MUSIC THEORY TEACHER's documentation. [] Additions or exceptions (if any) to the PAs/MUSIC THEORY TEACHER's note and plan are summarized below: [] (Vivi ROTHMAN,Karon) Critical Care Note Critical Care Note Critical Care Time: non-applicable (Nikolai Lewis)
== END 2017-02-27 21:08 ==
LOC: ERH 16:09
DX: Z76.0 Encounter for issue of repeat prescription (principal)
CPT/HCPCS: 99282